=== PATIENT | female | born 1965 | race American Indian/Alaskan Native ===

== ENCOUNTER 2017-07-21 16:51 | Emergency (ER) | payer OTHER, BC ==
[2017-07-21 16:51] VITALS: BMI 32.1
[2017-07-21 16:57] VITALS: O2SAT 99
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
--- NOTE | 2017-07-21 18:48 | RAD ---
HISTORY: chest pain COMPARISON: 10/18/2014 TECHNIQUE: Chest PA and lateral FINDINGS: LUNGS: No active pulmonary disease. PLEURA: No significant pleural effusion identified. No pneumothorax apparent. CARDIOVASCULAR: Normal. OSSEOUS STRUCTURES: No significant abnormalities. VISUALIZED UPPER ABDOMEN: Normal. OTHER FINDINGS: None. IMPRESSION: No active disease.
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
[2017-07-21 19:27] VITALS: BP 134/80; PULSE 82; RESP 16; TEMP 98.7
== END 2017-07-21 19:24 | disposition home or self-care (01) ==
LOC: ED 16:51
DX: M54.9 Dorsalgia, unspecified (principal); M25.512 Pain in left shoulder; M25.511 Pain in right shoulder; M79.1 Myalgia; V49.59XA Passenger injured in collision with other motor vehicles in traffic accident, initial encounter; Y92.410 Unspecified street and highway as the place of occurrence of the external cause
CPT/HCPCS: 71046; 72110; 73030; 96372; 99282; J1885

== ENCOUNTER 2017-07-22 08:25 | Emergency (ER) | payer OTHER, BC ==
[2017-07-22 08:25] VITALS: BMI 32.1
== END 2017-07-22 12:17 | disposition left against medical advice (07) ==
LOC: ED 08:25
DX: Z02.89 Encounter for other administrative examinations (principal); M25.511 Pain in right shoulder